=== PATIENT | male | born 1930 | race Caucasian/White ===

== ENCOUNTER 2019-02-24 13:50 | Observation (INO) | payer MEDICARE, OTHER ==
--- NOTE | 2019-02-24 14:10 | EDM.PDOC ---
ED HPI GENERAL MEDICAL PROBLEM - General Chief Complaint: General Stated Complaint: black emesis Time Seen by Provider: 02/24/19 13:50 Source of Information: Reports: Patient History Limitations: Reports: No Limitations - History of Present Illness INITIAL COMMENTS - FREE TEXT/NARRATIVE: This patient is an 88 year old male that presents to the ER. Patient reports that since last night he has had diffuse abdominal pain. He reports last night having some diarrhea ahas vomited several times. Patient reports that his vomiting was black in color. Patient reports that he is on coumadin and is afraid that he has a bleed. The patient reports that he has not thrown up today. Patient reports continued abdominal pain, but it has improved today. The is at bedside and is concerned and discusses that we admit to ensure he is not actively bleeding. Onset Date: 02/23/19 Duration: Day(s): (1) Severity: Mild Improves with: Reports: None Worsens with: Reports: None - Related Data Allergies Allergy/AdvReac Type Severity Reaction Status Date / Time Beta-Blockers Allergy Cannot Verified 02/24/19 14:15 (Beta-Adrenergic Bloc Remember ciprofloxacin [From Cipro] Allergy Cannot Verified 02/24/19 14:15 Remember levofloxacin [From Levaquin] Allergy Cannot Verified 02/24/19 14:15 Remember sulfamethoxazole Allergy Cannot Verified 02/24/19 14:15 [From Bactrim] Remember trimethoprim [From Bactrim] Allergy Cannot Verified 02/24/19 14:15 Remember Home Meds: Home Meds ALPRAZolam [Xanax] 0.25 mg PO TID 02/29/16 [History] Calcium Carbonate [Tums] 200 mg PO ASDIRECTED PRN 02/29/16 [History] Cholecalciferol (Vitamin D3) [Vitamin D] 5,000 unit PO DAILY 02/29/16 [History] Lutein [Natural Lutein] 20 mg PO DAILY 02/29/16 [History] Pantoprazole Sodium [Protonix] 20 mg PO DAILY 02/29/16 [History] Pyridostigmine [place] [Mestinon] 120 mg PO DAILY 02/29/16 [History] Warfarin [Coumadin] 5 mg PO DAILY 02/29/16 [History] azaTHIOprine [Azathioprine] 100 mg PO BID 02/29/16 [History] ED ROS GENERAL - Review of Systems Review Of Systems: See Below Constitutional: Reports: No Symptoms HEENT: Reports: No Symptoms Respiratory: Reports: No Symptoms Cardiovascular: Reports: No Symptoms Endocrine: Reports: No Symptoms GI/Abdominal: Reports: Abdominal Pain, Diarrhea, Hematemesis, Nausea, Vomiting. Denies: Black Stool : Reports: No Symptoms Musculoskeletal: Reports: No Symptoms Skin: Reports: No Symptoms Neurological: Reports: No Symptoms Psychiatric: Reports: No Symptoms Hematologic/Lymphatic: Reports: No Symptoms Immunologic: Reports: No Symptoms ED EXAM, GENERAL - Physical Exam Exam: See Below Exam Limited By: No Limitations General Appearance: Alert, WD/WN, No Apparent Distress Eye Exam: Bilateral Eye: Normal Inspection, PERRL Ears: Normal External Exam, Normal Canal, Hearing Grossly Normal, Normal TMs Ear Exam: Bilateral Ear: Auricle Normal, Canal Normal, TM normal Nose: Normal Inspection, Normal Mucosa, No Blood Throat/Mouth: Normal Inspection, Normal Lips, Normal Teeth, Normal Gums, Normal Oropharynx, Normal Voice, No Airway Compromise Head: Atraumatic, Normocephalic Neck: Normal Inspection, Supple, Non-Tender, Full Range of Motion Respiratory/Chest: No Respiratory Distress, Lungs Clear, Normal Breath Sounds, No Accessory Muscle Use Cardiovascular: Normal Peripheral Pulses, Regular Rate, Rhythm, No Edema, No Gallop, No JVD, No Murmur, No Rub Peripheral Pulses: 2+: Radial (L), Radial (R), Posterior Tibial (L), Posterior Tibial (R) GI/Abdominal: Normal Bowel Sounds, Soft, No Organomegaly, No Distention, No Abnormal Bruit, No Mass, Pelvis Stable, Tender (mildly diffuse) (Male) Exam: Deferred Rectal (Males) Exam: Normal Rectal Tone, Deferred, Heme + Stool. No: Black Stool, Bloody Stool, Hemorrhoids, Tenderness Back Exam: Normal Inspection, Full Range of Motion Extremities: Normal Inspection, Normal Range of Motion, Non-Tender, No Pedal Edema, Normal Capillary Refill Neurological: Alert, Oriented, Normal Cognition, Normal Gait, No Motor/Sensory Deficits Psychiatric: Normal Affect, Normal Mood Skin Exam: Warm, Dry, Intact, Normal Color, No Rash Lymphatic: No Adenopathy Course - Vital Signs Last Recorded V/S: Last Vital Signs Temp 98.3 F 02/24/19 14:16 Pulse 92 11/03/19 14:16 Resp 18 02/24/19 14:16 BP 143/92 H 02/24/19 14:16 Pulse Ox 94 L 02/24/19 14:16 - Orders/Labs/Meds Labs: Laboratory Tests 02/24/19 02/24/19 02/24/19 Range/Units 14:10 14:10 14:10 WBC 4.7 L (5.0-10.0) 10^3/uL RBC 3.43 L (4.50-6.00) 10^6/uL Hgb 12.7 L (14.0-18.0) g/dL Hct 36.2 L (40.0-54.0) % MCV 105.5 H (82.0-94.0) fL MCH 37.0 H (27.0-32.0) pg MCHC 35.1 (33.0-38.0) g/dL RDW Coeff of Ryan 15.0 (11.0-15.0) % Plt Count 191 (150-400) 10^3/uL Neut % (Auto) 63.4 (35-85) % Lymph % (Auto) 24.3 (10-55) % [place] % (Auto) 8.5 (0-16) % Eos % (Auto) 3.4 (0-5) % Baso % (Auto) 0.4 (0-3) % Neut # (Auto) 2.98 (1.80-7.00) 10^3/uL Lymph # (Auto) 1.14 (1.00-4.80) 10^3/uL [place] # (Auto) 0.40 (0.00-0.80) 10^3/uL Eos # (Auto) 0.16 (0.00-0.45) 10^3/uL Baso # (Auto) 0.02 10^3/uL PT (9.7-12.3) SEC INR (0.92-1.18) Sodium 144 (136-145) mEq/L Potassium 4.1 (3.5-5.0) mEq/L Chloride 107 H (98-106) mEq/L Carbon Dioxide 30 (21-32) mmol/L BUN 29 H (7-18) mg/dL Creatinine 1.2 (0.7-1.3) mg/dL Est Cr Clr Drug Dosing TNP Estimated GFR (MDRD) 57 L (>=60) mL/min Glucose 125 H (75-99) mg/dL Calcium 8.7 (8.4-10.1) mg/dL Total Bilirubin 0.7 (0.0-1.0) mg/dL AST 12 L (15-37) U/L ALT 12 (12-78) U/L Alkaline Phosphatase 76 (46-116) U/L Total Protein 6.3 L (6.4-8.2) g/dL Albumin 3.2 L (3.4-5.0) g/dL Amylase 81 (25-115) U/L Lipase 99 (73-393) U/L Blood Type A NEGATIVE Gel Antibody Screen Negative 02/24/19 Range/Units 14:10 WBC (5.0-10.0) 10^3/uL RBC (4.50-6.00) 10^6/uL Hgb (14.0-18.0) g/dL Hct (40.0-54.0) % MCV (82.0-94.0) fL MCH (27.0-32.0) pg MCHC (33.0-38.0) g/dL RDW Coeff of Ryan (11.0-15.0) % Plt Count (150-400) 10^3/uL Neut % (Auto) (35-85) % Lymph % (Auto) (10-55) % [place] % (Auto) (0-16) % Eos % (Auto) (0-5) % Baso % (Auto) (0-3) % Neut # (Auto) (1.80-7.00) 10^3/uL Lymph # (Auto) (1.00-4.80) 10^3/uL [place] # (Auto) (0.00-0.80) 10^3/uL Eos # (Auto) (0.00-0.45) 10^3/uL Baso # (Auto) 10^3/uL PT 17.6 H (9.7-12.3) SEC INR 1.76 H (0.92-1.18) Sodium (136-145) mEq/L Potassium (3.5-5.0) mEq/L Chloride (98-106) mEq/L Carbon Dioxide (21-32) mmol/L BUN (7-18) mg/dL Creatinine (0.7-1.3) mg/dL Est Cr Clr Drug Dosing Estimated GFR (MDRD) (>=60) mL/min Glucose (75-99) mg/dL Calcium (8.4-10.1) mg/dL Total Bilirubin (0.0-1.0) mg/dL AST (15-37) U/L ALT (12-78) U/L Alkaline Phosphatase (46-116) U/L Total Protein (6.4-8.2) g/dL Albumin (3.4-5.0) g/dL Amylase (25-115) U/L Lipase (73-393) U/L Blood Type Gel Antibody Screen Departure - Departure Time of Disposition: 18:48 Disposition: Refer to Observation Condition: Fair Clinical Impression: GI bleed Qualifiers: GI bleed type/associated pathology: gastritis Gastritis type: acute gastritis Qualified Code(s): K29.01 - Acute gastritis with bleeding Abdominal pain Qualifiers: Abdominal location: generalized Qualified Code(s): R10.84 - Generalized abdominal pain - Discharge Information *PRESCRIPTION DRUG MONITORING PROGRAM REVIEWED*: Not Applicable *COPY OF PRESCRIPTION DRUG MONITORING REPORT IN PATIENT BERNARDA: Not Applicable - Assessment/Plan Admission H&P: Please use this note as an admission H&P Plan: PLEASE SEE RN NOTE FOR PFSH.
[2019-02-24 14:28] LABS: CHLORIDE,CL 107 mEq/L (98-106); SODIUM,NA 144 mEq/L (136-145)
[2019-02-24] MEDS ORDERED: Calcium Carbonate 500 MG Tab.Chew PO PRN (19:03)
[2019-02-24] MEDS ORDERED: Morphine 2 MG/ML Syringe IVPUSH PRN (19:03)
[2019-02-24] MEDS ORDERED: Ondansetron 4 MG/2 ML SDV IV PRN (19:03)
[2019-02-24] MEDS: Pantoprazole 40 MG Vial IVPUSH SCH (19:44)
[2019-02-25] MEDS ORDERED: PYRIDOSTIGMINE BROMIDE PO SCH (08:00)
[2019-02-25] MEDS ORDERED: LUTEIN 20 MG PO SCH (08:00)
--- NOTE | 2019-02-25 13:12 | PCM.PN ---
- General Info Date of Service: 02/25/19 Admission Dx/Problem (Free Text): GI Bleed Functional Status: Reports: Pain Controlled, Tolerating Diet, Ambulating - Review of Systems General: Denies: Weakness, Fatigue HEENT: Reports: No Symptoms Pulmonary: Denies: Shortness of Breath, Cough Cardiovascular: Denies: Chest Pain, Edema, Lightheadedness Gastrointestinal: Reports: Melena. Denies: Abdominal Pain, Nausea, Vomiting Genitourinary: Reports: No Symptoms Musculoskeletal: Reports: No Symptoms Skin: Reports: No Symptoms Neurological: Denies: Dizziness, Headache, Weakness - Patient Data Vitals - Most Recent: Last Vital Signs Temp 97.5 F 02/25/19 08:00 Pulse 68 02/25/19 08:00 Resp 18 02/25/19 08:00 BP 154/71 H 02/25/19 08:00 Pulse Ox 98 02/25/19 08:00 Weight - Most Recent: 150 lb Lab Results Last 24 Hours: Laboratory Results - last 24 hr 02/24/19 02/24/19 02/24/19 Range/Units 14:10 14:10 14:10 WBC 4.7 L (5.0-10.0) 10^3/uL RBC 3.43 L (4.50-6.00) 10^6/uL Hgb 12.7 L (14.0-18.0) g/dL Hct 36.2 L (40.0-54.0) % MCV 105.5 H (82.0-94.0) fL MCH 37.0 H (27.0-32.0) pg MCHC 35.1 (33.0-38.0) g/dL RDW Coeff of Ryan 15.0 (11.0-15.0) % Plt Count 191 (150-400) 10^3/uL Neut % (Auto) 63.4 (35-85) % Lymph % (Auto) 24.3 (10-55) % [place] % (Auto) 8.5 (0-16) % Eos % (Auto) 3.4 (0-5) % Baso % (Auto) 0.4 (0-3) % Neut # (Auto) 2.98 (1.80-7.00) 10^3/uL Lymph # (Auto) 1.14 (1.00-4.80) 10^3/uL [place] # (Auto) 0.40 (0.00-0.80) 10^3/uL Eos # (Auto) 0.16 (0.00-0.45) 10^3/uL Baso # (Auto) 0.02 10^3/uL PT (9.7-12.3) SEC INR (0.92-1.18) Sodium 144 (136-145) mEq/L Potassium 4.1 (3.5-5.0) mEq/L Chloride 107 H (98-106) mEq/L Carbon Dioxide 30 (21-32) mmol/L BUN 29 H (7-18) mg/dL Creatinine 1.2 (0.7-1.3) mg/dL Est Cr Clr Drug Dosing TNP Estimated GFR (MDRD) 57 L (>=60) mL/min Glucose 125 H (75-99) mg/dL Calcium 8.7 (8.4-10.1) mg/dL Total Bilirubin 0.7 (0.0-1.0) mg/dL AST 12 L (15-37) U/L ALT 12 (12-78) U/L Alkaline Phosphatase 76 (46-116) U/L Total Protein 6.3 L (6.4-8.2) g/dL Albumin 3.2 L (3.4-5.0) g/dL Amylase 81 (25-115) U/L Lipase 99 (73-393) U/L Blood Type A NEGATIVE Gel Antibody Screen Negative 02/24/19 02/25/19 02/25/19 Range/Units 14:10 07:05 07:05 WBC 6.0 (5.0-10.0) 10^3/uL RBC 3.49 L (4.50-6.00) 10^6/uL Hgb 12.9 L (14.0-18.0) g/dL Hct 36.8 L (40.0-54.0) % MCV 105.4 H (82.0-94.0) fL MCH 37.0 H (27.0-32.0) pg MCHC 35.1 (33.0-38.0) g/dL RDW Coeff of Ryan 15.0 (11.0-15.0) % Plt Count 209 (150-400) 10^3/uL Neut % (Auto) 52.0 (35-85) % Lymph % (Auto) 34.6 (10-55) % [place] % (Auto) 9.8 (0-16) % Eos % (Auto) 3.1 (0-5) % Baso % (Auto) 0.5 (0-3) % Neut # (Auto) 3.14 (1.80-7.00) 10^3/uL Lymph # (Auto) 2.09 (1.00-4.80) 10^3/uL [place] # (Auto) 0.59 (0.00-0.80) 10^3/uL Eos # (Auto) 0.19 (0.00-0.45) 10^3/uL Baso # (Auto) 0.03 10^3/uL PT 17.6 H (9.7-12.3) SEC INR 1.76 H (0.92-1.18) Sodium 144 (136-145) mEq/L Potassium 4.3 (3.5-5.0) mEq/L Chloride 107 H (98-106) mEq/L Carbon Dioxide 31 (21-32) mmol/L BUN 24 H (7-18) mg/dL Creatinine 1.2 (0.7-1.3) mg/dL Est Cr Clr Drug Dosing 42.52 Estimated GFR (MDRD) 57 L (>=60) mL/min Glucose 102 H (75-99) mg/dL Calcium 8.7 (8.4-10.1) mg/dL Total Bilirubin (0.0-1.0) mg/dL AST (15-37) U/L ALT (12-78) U/L Alkaline Phosphatase (46-116) U/L Total Protein (6.4-8.2) g/dL Albumin (3.4-5.0) g/dL Amylase (25-115) U/L Lipase (73-393) U/L Blood Type Gel Antibody Screen Jacob Results Last 24 Hours: Microbiology 02/25/19 07:47 Occult Blood - Preliminary Stool / Feces Med Orders - Current: Current Medications Alprazolam (Xanax) 0.25 mg PO TID PATO Calcium Carbonate/Glycine (Tums) 200 mg PO ASDIRECTED PRN PRN Reason: Heartburn Morphine Sulfate (Morphine) 2 mg IVPUSH Q2H PRN PRN Reason: Pain (severe 7-10) Non-Formulary Medication (Azathioprine [Azathioprine]) 100 mg PO BID [facility] Non-Formulary Medication (Cholecalciferol (Vitamin D3)) 5,000 unit PO DAILY [facility] Non-Formulary Medication (Lutein [Natural Lutein]) 20 mg PO DAILY [facility] Non-Formulary Medication (Pyridostigmine Otho) 120 mg PO DAILY [facility] Ondansetron HCl (Zofran) 4 mg IV Q6H PRN PRN Reason: Nausea/Vomiting Pantoprazole Sodium (Protonix Iv) 40 mg IVPUSH Q24H [facility] Last Admin: 02/24/19 19:44 Dose: 40 mg - Exam General: Alert, Oriented HEENT: Mucous Membr. Moist/[place] Neck: Supple Lungs: Clear to Auscultation, Normal Respiratory Effort Cardiovascular: Regular Rate, Regular Rhythm GI/Abdominal Exam: Normal Bowel Sounds, Soft, Non-Tender, Other (urostomy bag intact) Extremities: Normal Inspection, No Pedal Edema Skin: Warm, Dry Neurological: No New Focal Deficit - Problem List & Annotations (1) GI bleed SNOMED Code(s): 53508897 Code(s): K92.2 - GASTROINTESTINAL HEMORRHAGE, UNSPECIFIED Status: Acute Priority: High Current Visit: Yes Qualifiers: GI bleed type/associated pathology: gastritis Gastritis type: acute gastritis Qualified Code(s): K29.01 - Acute gastritis with bleeding - Problem List Review Problem List Initiated/Reviewed/Updated: Yes - My Orders Last 24 Hours: My Active Orders 02/25/19 07:47 OCCULT BLOOD SCREEN [OP] Routine 02/25/19 09:18 Notify Provider Consults [RC] ASDIRECTED Consult to Physician [CONS] Routine - Assessment Assessment:: GI Bleed - Plan Plan:: Navdeep is feeling good today. He denies any abdominal pain. States yesterday has nausea, mild discomfort and a dark emesis. As he is on coumadin, was concerned about GI bleed. Today, no nausea. Occult blood x2 have been positive. Patient reports having a colonoscopy many years ago with Dr. Hernandez in [place], last EGD over 20 years ago. Has not had any recent bowel changes but stools are darker in nature. Did tolerate clear liquids this am without pain or nausea. Hemoglobin has remained stable at 12.9 today, 12.7 yesterday. INR 1.76. Will continue with IV Protonix. Plan for EGD tomorrow. Did discuss may need follow up colonoscopy pending the results. Repeat labs in am.
[2019-02-25] MEDS: Cholecalciferol (Vitamin D3) 25 MCG Tab PO SCH (18:45)
[2019-02-25] MEDS: ALPRAZolam 0.25 MG Tab PO SCH ×2 (18:45→20:55)
[2019-02-25] MEDS: AZATHIOPRINE 100 MG PO SCH (18:46)
[2019-02-25] MEDS ORDERED: PYRIDOSTIGMINE 60 MG PO SCH (20:00)
[2019-02-25] MEDS ORDERED: [UNRECOGNIZED DRUG - OTHER] PO SCH (20:00)
[2019-02-25] MEDS: Pantoprazole 40 MG Vial IVPUSH SCH (20:50)
[2019-02-25] MEDS: AZATHIOPRINE 50 MG PO SCH (20:54)
[2019-02-26] MEDS ORDERED: Lactated Ringers 1,000 ML IV SCH (05:00)
[2019-02-26] MEDS ORDERED: Benzocaine 20% Oral Spray 59.2 ML Canister MUCMEM ONE (06:58)
[2019-02-26] MEDS ORDERED: Meperidine PF 25 MG/ML Syringe IVPUSH ONE (07:03)
[2019-02-26] MEDS ORDERED: Midazolam 1 MG/ML 2 ML SDV IV ONE (07:04)
[2019-02-26] MEDS: ALPRAZolam 0.25 MG Tab PO SCH (07:51)
[2019-02-26] MEDS: AZATHIOPRINE 50 MG PO SCH (07:51)
[2019-02-26] MEDS: Cholecalciferol (Vitamin D3) 25 MCG Tab PO SCH (07:55)
[2019-02-26] MEDS ORDERED: PYRIDOSTIGMINE 60 MG PO SCH (08:00)
[2019-02-26 11:07] VITALS: BP 142/71; PULSE 60
--- NOTE | 2019-02-26 11:54 | PCM.DCSUM1 ---
Discharge Summary - Hospital Course Free Text/Narrative:: Patient presented to ER with complaints of hematemesis. Had abdominal pain and vomiting yesterday, noted that his emesis was black in nature. He is on Coumadin so was worried about bleeding. Had no diarrhea, had not noted blood in his stools. On day of presentation, no longer has pain. Mild nausea but no further vomiting. Hemoglobin in ER 12.7. FOB was positive. Admitted for IV fluids and serial hemoglobins. Cardiac monitoring. Diagnosis: Stroke: No Modified [place] Scale: No Symptoms at All Modified [place] Scale Score: 0 - Discharge Data Discharge Date: 02/26/19 Discharge Disposition: Home, Self-Care 01 Condition: Fair - Referral to Home Health Primary Care Physician: Jorgito Sepulveda MD - Discharge Diagnosis/Problem(s) (1) GI bleed SNOMED Code(s): 20890898 ICD Code: K92.2 - GASTROINTESTINAL HEMORRHAGE, UNSPECIFIED Status: Acute Priority: High Qualifiers: GI bleed type/associated pathology: gastritis Gastritis type: acute gastritis Qualified Code(s): K29.01 - Acute gastritis with bleeding - Patient Summary/Data Complications: none Consults: Consultations 02/25/19 09:18 Consult to Physician [CONS] Routine Hospital Course: Patient is feeling good today. Denies further abdominal pain, nausea or vomiting. No diarrhea. Has had soft stools, dark in nature. Occult positive x2. Hemoglobin on day 1 was stable on day 1, noted 12.9. EGD done which did show mild gastritis, no active bleeding. Day 2, hemoglobin 11.1. Abdomen is soft, nontender. Appetite has been good. Will plan for colonoscopy next week with Dr. Tobar. Will continue with Protonix at this time. Avoid NSAIDs and aspirin. Resume Coumadin now, hold next week for scope. Follow up with Dr. Sepulveda in 2 weeks after procedure done. - Patient Instructions Diet: Usual Diet as Tolerated Activity: As Tolerated Other/Special Instructions: 1. Colonoscopy next Monday with Dr. Tobar. 2. No NSAIDs, aspirin, ibuprofen. 3. Return in am for labs - Discharge Plan *PRESCRIPTION DRUG MONITORING PROGRAM REVIEWED*: Not Applicable *COPY OF PRESCRIPTION DRUG MONITORING REPORT IN PATIENT EBRNARDA: Not Applicable Home Medications: Home Meds ALPRAZolam [Xanax] 0.25 mg PO TID 02/29/16 [History] Calcium Carbonate [Tums] 200 mg PO ASDIRECTED PRN 02/29/16 [History] Cholecalciferol (Vitamin D3) [Vitamin D] 5,000 unit PO DAILY 02/29/16 [History] Lutein [Natural Lutein] 20 mg PO DAILY 02/29/16 [History] Pantoprazole Sodium [Protonix] 20 mg PO DAILY 02/29/16 [History] Pyridostigmine Thomson [Mestinon] 120 mg PO DAILY 02/29/16 [History] Warfarin [Coumadin] 5 mg PO DAILY 02/29/16 [History] azaTHIOprine [Azathioprine] 100 mg PO BID 02/29/16 [History] Forms: ED Department Discharge Referrals: Jorgito Sepulveda MD [Primary Care Provider] - (Follow up with Dr. Sepulveda in 2 weeks ) - Discharge Summary/Plan Comment DC Time >30 min.: No - General Info Date of Service: 02/26/19 Admission Dx/Problem (Free Text: GI Bleed Functional Status: Reports: Pain Controlled, Tolerating Diet, Ambulating - Review of Systems General: Denies: Weakness, Fatigue, Malaise HEENT: Reports: No Symptoms Pulmonary: Reports: No Symptoms Cardiovascular: Reports: No Symptoms Gastrointestinal: Reports: Melena. Denies: Abdominal Pain, Nausea, Vomiting Genitourinary: Reports: Other (urostomy intact) Musculoskeletal: Reports: No Symptoms - Patient Data Vitals - Most Recent: Last Vital Signs Temp 97.5 F 02/26/19 07:30 Pulse 60 02/26/19 07:30 Resp 16 02/26/19 07:30 BP 142/71 H 02/26/19 08:30 Pulse Ox 97 02/26/19 07:30 Weight - Most Recent: 150 lb Lab Results - Last 24 hrs: Laboratory Results - last 24 hr 02/26/19 02/26/19 Range/Units 05:00 05:00 WBC 3.5 L (5.0-10.0) 10^3/uL RBC 3.08 L (4.50-6.00) 10^6/uL Hgb 11.1 L (14.0-18.0) g/dL Hct 33.0 L (40.0-54.0) % MCV 107.1 H (82.0-94.0) fL MCH 36.0 H (27.0-32.0) pg MCHC 33.6 (33.0-38.0) g/dL RDW Coeff of Ryan 14.8 (11.0-15.0) % Plt Count 165 (150-400) 10^3/uL Neut % (Auto) 58.0 (35-85) % Lymph % (Auto) 23.3 (10-55) % [place] % (Auto) 13.5 (0-16) % Eos % (Auto) 4.9 (0-5) % Baso % (Auto) 0.3 (0-3) % Neut # (Auto) 2.02 (1.80-7.00) 10^3/uL Lymph # (Auto) 0.81 L (1.00-4.80) 10^3/uL [place] # (Auto) 0.47 (0.00-0.80) 10^3/uL Eos # (Auto) 0.17 (0.00-0.45) 10^3/uL Baso # (Auto) 0.01 10^3/uL Sodium 143 (136-145) mEq/L Potassium 4.2 (3.5-5.0) mEq/L Chloride 108 H (98-106) mEq/L Carbon Dioxide 31 (21-32) mmol/L BUN 18 (7-18) mg/dL Creatinine 1.2 (0.7-1.3) mg/dL Est Cr Clr Drug Dosing 42.52 mL/min Estimated GFR (MDRD) 57 L (>=60) mL/min Glucose 95 (75-99) mg/dL Calcium 8.4 (8.4-10.1) mg/dL CYNTHIA Results - Last 24 hrs: Microbiology 02/25/19 07:47 Occult Blood - Preliminary Stool / Feces Med Orders - Current: Current Medications Discontinued Medications Alprazolam (Xanax) 0.25 mg PO TID [facility] Last Admin: 02/26/19 07:51 Dose: Not Given Benzocaine (Hurricaine 20% [place]) 1 ml MUCMEM .STK-MED ONE Stop: 02/26/19 06:59 Last Admin: 02/26/19 06:58 Dose: 1 ml Calcium Carbonate/Glycine (Tums) 250 mg PO ASDIRECTED PRN PRN Reason: Heartburn Cholecalciferol (Vitamin D3) 125 mcg PO DAILY [facility] Last Admin: 02/26/19 07:55 Dose: 125 mcg Lactated Ringer's (Ringers, Lactated) 1,000 mls @ 125 mls/hr IV ASDIRECTED [facility] Last Admin: 02/26/19 07:01 Dose: 125 mls/hr Meperidine HCl (Demerol) 25 mg IVPUSH .STK-MED ONE Stop: 02/26/19 07:04 Last Admin: 02/26/19 07:03 Dose: 25 mg Midazolam HCl (Versed 1 Mg/Ml) 4 mg IV .STK-MED ONE Stop: 02/26/19 07:05 Last Admin: 02/26/19 07:04 Dose: 4 mg Morphine Sulfate (Morphine) 2 mg IVPUSH Q2H PRN PRN Reason: Pain (severe 7-10) Non-Formulary Medication (Azathioprine [Azathioprine]) 100 mg PO BID [facility] Last Admin: 02/25/19 18:46 Dose: Not Given Non-Formulary Medication (Lutein [Natural Lutein]) 20 mg PO DAILY [facility] Last Admin: 02/25/19 18:46 Dose: Not Given Non-Formulary Medication (Pyridostigmine Thomson) 120 mg PO DAILY [facility] Last Admin: 02/25/19 18:46 Dose: Not Given Azathioprine 50 Mg (Tabs Own Med) 0 each PO BID [facility] Last Admin: 02/26/19 07:51 Dose: 50 each Pyridostigmine 60 Mg (Tabs Own Med) 0 each PO BEDTIME [facility] Last Admin: 02/25/19 20:54 Dose: 1 each Pyridostigmine 60 Mg (Tabs Own Med) 0 each PO DAILY [facility] Last Admin: 02/26/19 07:50 Dose: 120 each Lutein Esters 20 Mg (Own Med) 0 each PO BEDTIME [facility] Last Admin: 02/25/19 20:54 Dose: 1 each Ondansetron HCl (Zofran) 4 mg IV Q6H PRN PRN Reason: Nausea/Vomiting Pantoprazole Sodium (Protonix Iv) 40 mg IVPUSH Q24H [facility] Last Admin: 02/25/19 20:50 Dose: 40 mg - Exam General: Reports: Alert, Oriented HEENT: Reports: Mucous Membr. Moist/[place] Neck: Reports: Supple Lungs: Reports: Clear to Auscultation, Normal Respiratory Effort Cardiovascular: Reports: Regular Rate, Regular Rhythm GI/Abdominal Exam: Normal Bowel Sounds, Soft, Non-Tender Extremities: Normal Inspection, No Pedal Edema Skin: Reports: Warm, Dry Neurological: Reports: No New Focal Deficit
--- NOTE | 2019-02-27 08:53 | OR ---
DATE OF OPERATION: 02/26/2019 PREOPERATIVE DIAGNOSIS: COFFEE GROUND EMESIS. POSTOPERATIVE DIAGNOSIS: COFFEE GROUND EMESIS. SURGEON: Adrien Tobar MD PROCEDURE: ESOPHAGOGASTRODUODENOSCOPY WITH BIOPSIES X6, SANDRA. ANESTHESIA: Conscious sedation with continuous O2 saturation monitoring and nurse assist. A total of 4 mg of Versed and 25 mg of Demerol given. The patient's saturations remained above 90% for the entire procedure. COMPLICATIONS: None. SPECIMEN: 1. Antral SANDRA. 2. Antral biopsy x2. 3. Fundal biopsy x2. 4. Cardia biopsy x2. FINDINGS: 1. Full-length EGD. 2. Moderate-sized hiatal hernia with no distal esophagitis, stricturing, ulceration, or obvious Kuhn's changes. 3. Diffuse, but mild active gastritis, most prevalent upper and mid fundus, with no active bleeding sites. RECOMMENDATIONS: Ongoing medical followup in the hospital. INDICATIONS: The patient presented as a chronic atrial fibrillation patient, on anticoagulation, with a coffee-ground emesis. As soon as he had that, he felt better. He has had no further signs of GI bleeding other than heme-positive stool. He is being managed in our facility, and we elected to proceed with EGD. DESCRIPTION OF PROCEDURE: The patient was prepped and draped, placed in left lateral decubitus position with the head of the bed elevated. Lubricated gastric colonoscope was inserted over a bit and advanced to cricopharyngeus area, and with patient swallow, easily intubated into the esophagus. The esophageal lining was benign in its entire course. The Z-line was crisp, around 34 cm. Moderate-sized hiatal hernia is present with spontaneous GERD, but no distal esophagitis, stricturing, ulceration, or gross Kuhn's changes. The scope was advanced into the stomach, ultimately through the pylorus, and into the second portion of the duodenum. This was benign. The duodenal bulb was completely unremarkable. The scope was brought back into the stomach and retroflexed. The upper fundus and cardia were evaluated. The patient has kind of a diffuse active and mild gastritis. There are some areas that look like they may have been hemorrhagic, only some pinpoint petechiae throughout, most notably in the upper fundus and cardia portion of the stomach, but this does extend throughout the entire gastric lining. No gross ulcerations, masses, polyps, etc., were seen. We did do 2 biopsies at the cardia, fundus, and antrum and as well took a CLOtest. Air was then suctioned from the stomach, the scope removed without complication. GENEVIEVE/LEONEL /[id number]
== END 2019-02-26 09:31 | disposition home or self-care (01) ==
LOC: CC.ED 13:50 → CC.MS 17:15 → UNDOADMOB 17:15 → CC.MS 18:51
PROVIDERS: ADMIT Nurse Practitioner; ATTEND Family Medicine
DX: K29.01 Acute gastritis with bleeding (principal); K44.9 Diaphragmatic hernia without obstruction or gangrene; K31.89 Other diseases of stomach and duodenum; Z79.899 Other long term (current) drug therapy; Z79.01 Long term (current) use of anticoagulants; Z88.8 Allergy status to other drugs, medicaments and biological substances; Z88.1 Allergy status to other antibiotic agents; Z88.2 Allergy status to sulfonamides
CPT/HCPCS: 36415; 43239; 80048; 80053; 82150; 82270; 83690; 85025; 85610; 86850; 86900; 86901; 87081; 93005; 96374; 96376; 99284; A9270-GY; C9113; G0378; J2175; J2250; J7120

== ENCOUNTER → 2019-03-08 | Day surgery (SDC) | payer MEDICARE, OTHER ==
[~2019-03-08] MED LIST: Lactated Ringers 1,000 ML IV SCH; Propofol 200 MG/20 ML SDV IV ONE
--- NOTE | 2019-03-08 14:55 | OR ---
DATE OF OPERATION: 03/08/2019 PREOPERATIVE DIAGNOSIS: GASTROINTESTINAL BLEED. POSTOPERATIVE DIAGNOSIS: GASTROINTESTINAL BLEED. SURGEON: Adrien Tobar MD PROCEDURE: FULL-LENGTH COLONOSCOPY WITH FORCEPS POLYP REMOVAL X4. ANESTHESIA: MAC. COMPLICATIONS: None. SPECIMEN: Four small sessile polyps, right colon. FINDINGS: 1. Full-length colonoscopy. 2. 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 3. Four small sessile polyps, all right colon, see report. RECOMMENDATIONS: Followup colonoscopy in 3 to 5 years pending path report as needed. INDICATIONS: The patient was actually in our facility with a GI bleed. His endoscopy showed some duodenitis. We elected to proceed with lower scope as well. DESCRIPTION OF PROCEDURE: The patient was prepped and draped, placed in the left lateral decubitus position. A lubricated Olympus colonoscope was inserted and once we got past the very tight flexure at 30 cm, scope advanced easily to the cecal pouch. Right in the cecum, the patient had a small sessile polyp, approximately 3 to 4 mm, removed in its entirety with 3 forceps biopsies. At the proximal transverse colon and the mid transverse colon, the patient had 3 more small sessile polyps, all removed with forceps in their entirety as well. No other lesions were found in the transverse or descending colon. The sigmoid colon had severe diverticular disease without inflammation. The rectal vault was benign. I could not retroflex in the rectum. Due to the shallowness of the vault and the presence of tics close by, did not risk pressure for retroflexion, but upon direct withdrawal, no obvious lesions were seen. Air was suctioned as best as possible and the scope removed without complication. To note, there were some areas in the left colon that had a lot of stool which was thick and particulate I could not suction, so there was the potential for missed lesions in the left colon. GENEVIEVE/LEONEL /[id number]
[2019-03-08 15:46] VITALS: BP 133/79; PULSE 76
== END ==
LOC: CC.SDS 09:22
PROVIDERS: ATTEND Family Medicine
DX: K57.31 Diverticulosis of large intestine without perforation or abscess with bleeding (principal); K29.81 Duodenitis with bleeding; D12.0 Benign neoplasm of cecum; D12.3 Benign neoplasm of transverse colon; Z79.01 Long term (current) use of anticoagulants
CPT/HCPCS: 45380; J7120; 00811; 88305; J2704